=== PATIENT | male | born 1965 | race Caucasian/White ===

== ENCOUNTER 2020-10-02 11:30 | Outpatient (CLI) | payer OTHER, SELFPAY ==
--- NOTE | 2020-10-02 11:30 | ECG_ITS ---
Measurements Intervals Adams Rate: 55 P: 55 MS: 156 QRS: 59 QRSD: 92 T: 70 QT: 383 QTc: 368 Interpretive Statements SINUS BRADYCARDIA BASELINE ARTIFACT- I, II, III, AVR, AVL, AVF BORDERLINE ECG Electronically Signed On 10-02-2020 12:04:40 CDT by Justin Copeland D.O.
== END 2020-10-02 11:31 | disposition home or self-care (01) ==
LOC: ANHSURGERY 11:33
PROVIDERS: PCP Internal Medicine; Visit Provider Surgery
DX: K40.90 Unilateral inguinal hernia, without obstruction or gangrene, not specified as recurrent (principal); E78.2 Mixed hyperlipidemia
CPT/HCPCS: 36415; 86850; 86900; 86901; 93005

== ENCOUNTER → 2020-10-04 01:48 | Outpatient (CLI) | payer OTHER, SELFPAY ==
[2020-10-05 14:52] LABS: SARS-CoV-2 RNA PCR Negative
== END ==
PROVIDERS: PCP Internal Medicine; Visit Provider Surgery
DX: Z01.812 Encounter for preprocedural laboratory examination (principal); Z20.822 Contact with and (suspected) exposure to COVID-19
CPT/HCPCS: C9803; U0003; U0005

== ENCOUNTER 2020-10-07 02:03 | Day surgery (SDC) | payer OTHER, SELFPAY ==
[2020-09-30 10:28] VITALS: BMI 19.8
[2020-10-07] VITALS (8 sets, daily range): BP systolic 85–122; BP diastolic 54–69; PULSE 46–86; RESP 14–20; TEMP 36.4–37.2; O2SAT 97–100
--- NOTE | 2020-10-07 09:58 | WPDANESEPPF ---
Anes - Initial Pre Proc Eval Procedure: Operation Date: 10/07/20 11:30 Proposed Procedures p Laparoscopic Left Inguinal Hernia Repair With Mesh, DaVinci Assisted - Kevan Bernstein DO Date/Time: 10/07/20 09:58 Surgeon: Kevan Bernstein DO Pre Op Diagnosis: left inguinal hernia Patient Data Age: 55 Gender: M Height: 5 ft 8.5 in Weight: 59.9 kg Last Vital Signs Temp 98.9 F 10/07/20 09:38 Pulse 86 10/07/20 09:38 Resp 16 10/07/20 09:38 BP 112/66 10/07/20 09:38 Pulse Ox 100 10/07/20 09:38 Allergies Allergy/AdvReac Type Severity Reaction Status Date / Time No Known Allergies Allergy Unknown Verified 10/07/20 09:56 Home Medications Medication Instructions Recorded Confirmed Type cetirizine 10 mg tablet 10 mg PO DAILY 05/09/19 09/30/20 History ascorbic acid (vitamin C) [Vitamin 5 g PO DAILY 09/30/20 09/30/20 History C] atorvastatin 20 mg PO DAILY 09/30/20 09/30/20 History cholecalciferol (vitamin D3) 75 mcg PO DAILY 09/30/20 09/30/20 History [Vitamin D3] levothyroxine [Euthyrox] 50 mcg PO DAILY 09/30/20 09/30/20 History vitamin B complex 1 tablet PO DAILY 09/30/20 09/30/20 History vitamin E 400 unit PO DAILY 09/30/20 09/30/20 History zinc 50 mg PO DAILY 09/30/20 09/30/20 History cetirizine [Zyrtec] 10 mg PO DAILY 10/07/20 10/07/20 History coenzyme Q10 [CoQ-10] 100 mg PO DAILY 10/07/20 10/07/20 History iodine (kelp) [Kelp] 1 tablet PO DAILY 10/07/20 10/07/20 History lactobacillus combination no.4 3,000 mmu cells PO DAILY 10/07/20 10/07/20 History [Probiotic] lysine 500 mg PO DAILY 10/07/20 10/07/20 History vitamin A 2,400 mcg PO DAILY 10/07/20 10/07/20 History vitamin B complex 1 cap PO DAILY 10/07/20 10/07/20 History Patient hx anesthesia problems: none Family hx anesthesia problems: none [facility] Past Medical History Medical History Hypothyroidism Mixed hyperlipidemia Surgical History Surgical History S/P foot surgery, right Family History Family History Mother Cerebrovascular accident Sibling Diabetes mellitus Other Family history of arthritis Family history of lymphoma Hypertension Social History Social History Smoking status: Never smoker Alcohol intake: never Substance use: never Substance use type: does not use Living arrangements: with family Additional occupation/education comments: [employer] at [employer] Spiritual care concerns: No Anes - Eval Final PreProcedure Day of Procedure 10/07/20 09:58 Patient weight: normal Heart: regular rate and rhythm Lungs: clear to auscultation Airway: Mallampati scale class II Neurological: alert and oriented Last oral intake: >/= 8 hours ASA classification: II Emergent: no Anesthetic plan: proceed Anesthesia type and monitoring: general ETT and standard monitoring Informed Consent: The patient's anesthetic plan and its attendant risks and benefits were discussed with the patient/family/POA. Questions were solicited and answers provided to the satisfaction of the patient/family/POA.
--- NOTE | 2020-10-07 10:10 | WPDHPUPDATE1 ---
History and Physical Update Update Date/Time: 10/07/20 10:10 History and Physical has been reviewed, including an updated exam of the patient. There are NO changes in the patient's condition. Risks, benefits, and alternatives have been discussed and questions answered. Patient agrees to proceed with procedure.
[2020-10-07] MEDS: ACETAMINOPHEN 500 MG TABLET 1000 MG PO (10:12)
[2020-10-07] MEDS: LACTATED RINGERS 1,000 ML 30 ML IV CONT ×4 (10:20→16:54)
[2020-10-07] MEDS: KETOROLAC 15 MG/ML VIAL (*BKC) IV PUSH (10:20)
[2020-10-07] MEDS: ceFAZolin 2 GM/D5W 50 ML 2 GM/50 ML BAG IVPB (10:38)
[2020-10-07] MEDS: BUPIVACAINE/EPINEPHRINE 0.5% 30 ML VIAL INFILTRATE (11:22)
--- NOTE | 2020-10-07 12:01 | PM.PROC ---
Procedure Note - Detailed Date of procedure: 10/07/20 Pre-op diagnosis: left inguinal hernia Post-op diagnosis: other (Bilateral Direct inguinal hernia) Procedure performed: Laparoscopic bilateral inguinal hernia repair with Progrip mesh, da Daniel assisted Description of procedure: Procedure as well as risks, benefits, and alternatives were discussed with the patient. Written consent was obtained and placed in chart prior to procedure. Patient was brought back to surgical suite. He was placed supine on operating table. Time-out was done to confirm patient and procedure. He was then intubated by Anesthesia Department. His abdomen was prepped and draped in sterile fashion using chlorhexidine prep. 0.5% bupivacaine with epinephrine was infiltrated at each location for incision. A 12 millimeter transverse incision was made just superior to the umbilicus using a 15 blade scalpel. Blunt dissection was carried out down to the linea alba. A vertical incision was made at the linea alba using a 15 blade scalpel. The peritoneum was then bluntly entered. A 12 millimeter trocar was inserted and carbon dioxide insufflation was used to create a pneumoperitoneum. A camera was inserted and the abdominal cavity was inspected. The patient was placed in slight Trendelenburg position. An 8 millimeter incision was made on the right lateral abdomen and an 8 millimeter trocar was inserted under direct visualization. Another 8 millimeter incision was made in the left lateral abdomen and an 8 millimeter trocar was inserted under direct visualization. The robotic arms were brought up to the patient's bedside and secured to the ports. The camera and instruments were inserted. I then moved over to the robotic console and took control of the camera and instruments. After careful inspection of the abdominal cavity, I began scoring the peritoneum along the left lower quadrant using scissors with electrocautery. The preperitoneal plane was entered and this was carefully dissected caudally along the inferior epigastric vessels. Careful dissection with scissors with electrocautery and blunt dissection was used to continue this dissection. I dissected far enough laterally to allow for mesh placement, and also dissected medially to identify the pubic arch and Nicolas's ligament. The hernia sac was identified and carefully dissected posteriorly. The cord contents were also identified and the peritoneum was carefully dissected far enough posteriorly to allow for mesh placement. Once an adequate pocket was created, I then placed the mesh within the preperitoneal pocket and carefully unfolded it. The mesh was centered on the hernia defect with adequate overlap circumferentially. The inferior edge of the mesh was inspected to ensure that it was far enough away from the peritoneal edge. The mesh appeared in proper position overlying the entire myopectineal orifice. The peritoneum was then closed over the mesh using a 3-0 V-lock running absorbable suture. I then began scoring the peritoneum along the right lower quadrant using scissors with electrocautery. The preperitoneal plane was entered and this was carefully dissected caudally along the inferior epigastric vessels. Careful dissection with scissors with electrocautery and blunt dissection was used to continue this dissection. I dissected far enough laterally to allow for mesh placement, and also dissected medially to identify the pubic arch and Nicolas's ligament. The hernia sac was identified and carefully dissected posteriorly. The cord contents were also identified and the peritoneum was carefully dissected far enough posteriorly to allow for mesh placement. Once an adequate pocket was created, I then placed the mesh within the preperitoneal pocket and carefully unfolded it. The mesh was centered on the hernia defect with adequate overlap circumferentially. The inferior edge of the mesh was inspected to ensure that it was far enough dioni
--- NOTE | 2020-10-07 15:15 | SUR.PHASEII ---
1500 patient is alertx4, vss with minimal pain to b/l groin incisions. pt has been up walking the halls trying to void prior to being discharged. no longer documenting vital signs, pt has been in op recovery for 2 hours.
--- NOTE | 2020-10-07 16:58 | SUR.PHASEII ---
[address] ayala that pt has been in op recovery since 1300, pt vss, minimal pain, respiratory wnl. pt has had 3L of LR infused, numerous drinks and has walked the halls, but pt has not voided per discharge requirements. pt previously bladder scnned -200ml. dr ayala wants pt to be watched a little longer and continue with fluids and drinks.
== END 2020-10-07 18:25 | disposition home or self-care (01) ==
PROVIDERS: PCP Internal Medicine; Visit Provider Surgery
PROC: 8E0Y4CZ Robotic Assisted Procedure of Lower Extremity, Percutaneous Endoscopic Approach (ICD-10-PCS; CPT 49650; principal; 2020-10-07 11:30)
DX: K40.20 Bilateral inguinal hernia, without obstruction or gangrene, not specified as recurrent (principal); E78.5 Hyperlipidemia, unspecified; E03.9 Hypothyroidism, unspecified
CPT/HCPCS: 49650; S2900; A9270; C1781; C9803; J0690; J1100; J1170; J1885; J2250; J2405; J2704; J2710; J3010; J7120; U0003; U0005